=== PATIENT | female | born 1985 | race Caucasian/White ===

== ENCOUNTER 2018-09-18 11:46 | Emergency (ER) | payer OTHER ==
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
[2018-09-18] MEDS ORDERED: HYDROcodone/ACETAMIN 5-325 MG* 1 TAB PO ONE (12:55)
[2018-09-18] MEDS ORDERED: Ketorolac INJ* 60 MG/2 ML VIAL IM ONE (12:55)
[2018-09-18 13:31] VITALS: BP 138/85
== END 2018-09-18 13:31 | disposition home or self-care (01) ==
LOC: ED 11:46
DX: S42.255A Nondisplaced fracture of greater tuberosity of left humerus, initial encounter for closed fracture (principal); S50.312A Abrasion of left elbow, initial encounter; S09.93XA Unspecified injury of face, initial encounter; V28.0XXA Motorcycle driver injured in noncollision transport accident in nontraffic accident, initial encounter; Y93.55 Activity, bike riding; Y92.9 Unspecified place or not applicable; Z88.0 Allergy status to penicillin
CPT/HCPCS: 96372; 99282; J1885